=== PATIENT | female | born 1935 | race Asian ===

== ENCOUNTER 2018-09-07 13:40 | Emergency (ER) | payer OTHER, MEDICAID, SELFPAY ==
[2018-09-07] VITALS (10 sets, daily range): BP systolic 145–177; BP diastolic 57–115; PULSE 70–126; RESP 19–28; TEMP 35.8–36.6; O2SAT 91–98
--- NOTE | 2018-09-07 14:04 | DI.RAD.S_ITS ---
PROCEDURE: XR CHEST 1V INDICATIONS: chest pain TECHNIQUE: One view of the chest was acquired. COMPARISON: None. FINDINGS: Surgical changes and devices: None. Lungs and pleura: Lungs are abnormal with an interstitial prominence perhaps reflecting a prior smoking history and there is a asymmetric rounded mass lesion superimposed on the distal first right rib, measuring up to 1.9 cm. This same area on the left does not show increased radiodensity. The right hilum appears asymmetrically more dense than that on the left also. No pleural effusions or pneumothorax. Mediastinum: Mediastinal contours appear normal. Heart size is normal. Bones and chest wall: No suspicious bony lesions. Overlying soft tissues appear unremarkable. IMPRESSION: Possible apical mass lesion right upper lobe measuring up to 1.9 cm. Increased radiodensity over the right hilum is a potential manifestation of associated adenopathy. A chest CT scanning may be warranted versus obtaining two-view chest after symptoms have improved to determine whether this appearance persists or resolves. Dictated by: Ollie Snow M.D. on 09/07/2018 at 14:27 Approved by: Ollie Snow M.D. on 09/07/2018 at 14:29
[2018-09-07 14:32] LABS: Prothrombin Time 11.3 SECONDS (10.1-12.7)
[2018-09-07 14:33] LABS: Add Manual Diff / Slide Review NO; Basophils Absolute Auto 100 /uL (0-100); Basophils Percent Auto 0.8 % (0-2); Eosinophils Absolute Auto 200 /uL (0-450); Eosinophils Percent Auto 3.3 % (2-4); Hematocrit 39.9 % (36-46); Hemoglobin 13.6 g/dL (12.0-16.0); Lymphocytes Absolute Auto 1600 /uL (1100-4500); Lymphocytes Percent Auto 23.7 % (25-40); Mean Corpuscular HGB Conc 34.2 % (30-36); Mean Corpuscular Hemoglobin 31.2 PG (26-34); Mean Corpuscular Volume 91.4 fL (80-100); Monocytes Absolute Auto 600 /uL (0-900); Monocytes Percent Auto 8.5 % (3-14); Neutrophils Absolute Auto 4200 /uL (1500-7000); Neutrophils Percent Auto 63.7 % (50-75); Platelet Count 243 X10^3/uL (150-400); Red Blood Cell Count 4.36 X10^6/uL (4.0-5.2); Red Cell Distribution Width 14.2 % (11.6-14.8); White Blood Cell Count 6.7 X10^3/uL (4.5-11.0)
[2018-09-07 14:34] LABS: PTT Partial Thromboplastin Tim 29 SECONDS (26.4-36.2)
[2018-09-07 14:36] LABS: Alanine Aminotransferase 80 IU/L (9-52); Albumin 4.5 g/dL (3.5-5.0); Albumin Globulin Ratio 1.4 (1.0-2.8); Alkaline Phosphatase 79 U/L (38-126); Aspartate Aminotransferase 94 IU/L (14-36); Blood Urea Nitrogen 21 mg/dL (7-17); Calcium 10.6 mg/dL (8.4-10.2); Carbon Dioxide 26 mmol/L (22-32); Chloride 101 mmol/L (98-107); Creatine Kinase 74 U/L (30-135); Estimated Glomerular Filt Rate > 60.0 mL/min (>60); Globulin 3.2 g/dL (1.7-4.1); Glucose 97 mg/dL (80-110); Lipase 58 U/L (23-300); Sodium 138 mmol/L (137-145); Total Protein 7.7 g/dL (6.3-8.2)
[2018-09-07 14:38] LABS: HEMOLYSIS 71 (0-50)
[2018-09-07 14:39] LABS: Potassium 4.4 mmol/L (3.4-5.1)
[2018-09-07 14:48] LABS: Troponin I 0.031 ng/mL (0.01-0.034)
[2018-09-07 15:05] LABS: B Type Natriuretic Peptide 568 (<100)
--- NOTE | 2018-09-07 15:45 | DI.CT.S_ITS ---
PROCEDURE: CT ANGIO CHEST PE PROTOCOL INDICATIONS: SOB, chest pain, hypoxia, travel from [facility] TECHNIQUE: After the administration of intravenous contrast, 2 mm thick sections acquired from the pulmonary apices to the posterior costophrenic angles. 3-dimensional maximum intensity projection (MIP) coronal and sagittal reformats were then acquired through the thorax. For radiation dose reduction, the following was used: automated exposure control, adjustment of mA and/or kV according to patient size. COMPARISON: None. FINDINGS: Image quality: Excellent. Pulmonary arteries: Pulmonary arteries are normal in size, and demonstrate no intraluminal filling defects to suggest central pulmonary embolism. Lungs and pleura: Mild bilateral pleural effusions are present. There is adjacent atelectasis. No pneumothorax. Upper lobe predominant centrilobular emphysema. No acute consolidation. 4 mm nodule present within the right lung base on image 33 series 5. Scattered scarring/atelectasis. Mediastinum: Heart size is enlarged. Coronary artery calcifications are present. No pericardial effusion. No mediastinal or hilar adenopathy. 4.2 cm diameter aneurysmal dilatation of the ascending thoracic aorta. There scattered vascular calcifications. Esophagus is normal in caliber, without hiatal hernia. Bones and chest wall: No suspicious bony lesions. T12 compression fracture, technically age indeterminate. Thyroid gland contains a low attenuation 1 cm right nodule. No axillary or supraclavicular adenopathy. Abdomen: Visualized upper abdominal solid organs appear normal in the early arterial phase of enhancement. IMPRESSION: No evidence of pulmonary embolism. 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 Coronary artery disease. Scattered scarring/atelectasis. No acute consolidation Small bilateral pleural effusions with adjacent atelectasis. Nonspecific right thyroid nodule. This could be further assessed with dedicated ultrasound as clinically warranted. T12 compression fracture, age indeterminate. 4 mm nodule within the right lung base. A noncontrast chest CT in one year could be performed to help exclude malignant or metastatic etiologies. Dictated by: Sylvester Ambrose M.D. on 09/07/2018 at 16:16 Approved by: Sylvester Ambrose M.D. on 09/07/2018 at 16:23
[2018-09-07] MEDS: FUROSEMIDE 40 MG/4 ML VIAL IV (16:06)
[2018-09-07] MEDS: dilTIAZem 5 MG/ML SDV 10 MG IV (16:08)
--- NOTE | 2018-09-07 16:38 | ED.SOB ---
HPI - SOB/Dyspnea General Chief Complaint: Shortness of Breath/Dyspnea Stated Complaint: sob x2 weeks/both shins rash x1 year Time Seen by Provider: 09/07/18 14:20 Source: patient and family Mode of arrival: ambulatory Limitations: no limitations History of Present Illness 83-year-old female former smoker presents with her daughter and a chief complaint of shortness of breath for few weeks. She denies any chest pain and is not dizzy, nauseated or diaphoretic. She complains of worsening shortness of breath when lying flat, with exertion and complains of bilateral lower extremity edema. She denies palpitations and does not sense that her heart is racing. She was in the [facility] from April until June. Patient had been taking hydrochlorothiazide until about 1 year ago but stopped because her doctor told her she probably did not need it anymore MD Complaint: shortness of breath Onset (ago): week(s) Context: medication noncompliance and recent travel Severity: moderate Consistency/Duration: intermittent Relieving factors: oxygen and rest Associated symptoms: denies other symptoms Related Data Home oxygen amount: none Home Medications Medication Instructions Recorded Confirmed No Known Home Medications 09/07/18 09/07/18 Allergies Allergy/AdvReac Type Severity Reaction Status Date / Time No Known Drug Allergies Allergy Verified 09/07/18 14:23 Review of Systems Constitutional Denies chills, Denies fever(s), Denies lethargy and Denies weakness Eyes Denies change in vision, Denies eye discharge, Denies irritation and Denies loss of vision ENT Ears, Nose, Mouth, and Throat: Denies change in voice, Denies neck pain and Denies sore throat Cardiovascular Denies chest pain, Denies irregular heart rhythm, Denies lightheadedness, Denies palpitations, Reports dyspnea, Denies dyspnea on exertion and Denies orthopnea Respiratory Denies cough, Reports dyspnea, Denies dyspnea on exertion and Denies wheezing Gastrointestinal Gastrointestinal: Denies abdominal pain, Denies change in bowel habits, Denies diarrhea, Denies nausea and Denies vomiting Genitourinary Denies hematuria, Denies flank pain, Denies urinary incontinence and Denies urinary urgency Musculoskeletal Denies neck pain Integumentary/Breasts Denies pruritus, Denies erythema, Denies rash and Denies wounds Neurologic Denies confusion, Denies loss of vision and Denies weakness Psychiatric Denies anxiety, Denies confusion, Denies depression, Denies homicidal ideation and Denies suicidal ideation Endocrine Denies palpitations Hematologic/Lymphatic Denies easy bruising Allergic/Immunologic Denies wheezing PFSH Social History Smoking Status: Current every day smoker Social History Smoking Status: Current every day smoker Exam Narrative Exam Narrative: GENERAL: Pleasant 83-year-old female resting comfortably though obviously having some shortness of breath HEAD: Atraumatic. Normocephalic. No temporal or scalp tenderness. EYES: Pupils equal round and reactive. Extraocular motions intact. No scleral icterus. No injection or drainage. ENT: Nose without bleeding, purulent drainage or septal hematoma. Throat without erythema, tonsillar hypertrophy or exudate. Uvula midline. Airway patent. NECK: Trachea midline. No JVD or lymphadenopathy. Supple, nontender, no meningeal signs. CARDIOVASCULAR: Tachycardic and irregular rhythm without murmurs, gallops, or rubs. RESPIRATORY: Crackles in bilateral bases. No wheezes, rales, or rhonchi. GASTROINTESTINAL: Abdomen soft, non-tender, nondistended. No hepato-splenomegaly, or palpable masses. No guarding. EXTREMITIES: 2+ pitting edema in bilateral lower extremities BACK: Nontender without deformity or crepitance. No flank tenderness. NEURO: AOx3. SKIN: No rash or erythema. Initial Vital Signs Initial Vital Signs: Vital Signs Temperature 97.8 F 09/07/18 13:50 Pulse Rate 126 H 09/07/18 13:50 Respiratory Rate 22 09/07/18 13:50 Blood Pressure 173/105 H 09/07/18 13:50 Pulse Oximetry 94 09/07/18 13:50 Course Orders Ordered: ED Orders 09/07/18 14:03 EKG-12 Lead Stat 09/07/18 14:04 XR chest 1V Stat 09/07/18 14:15 BNP [B Type Natriuretic Peptide] Stat Complete Blood Count AUTO DIFF Stat Comprehensive Metabolic Panel Stat Lipase Stat Partial Thromboplastin Time Stat Prothrombin Time INR Stat Troponin & CK Cardiac Panel Stat 09/07/18 15:45 CT angio chest PE protocol Stat Discontinued Medications Diltiazem HCl (Cardizem) 10 mg IV NOW ONE Stop: 09/07/18 15:47 Last Admin: 09/07/18 16:08 Dose: 10 mg Diltiazem HCl (Cardizem Cd) 120 mg PO NOW ONE Stop: 09/07/18 17:11 Last Admin: 09/07/18 17:30 Dose: 120 mg Furosemide (Lasix) 40 mg IV NOW ONE Stop: 09/07/18 15:46 Last Admin: 09/07/18 16:06 Dose: 40 mg Rivaroxaban (Xarelto) 15 mg PO NOW ONE Stop: 09/07/18 17:11 Last Admin: 09/07/18 17:31 Dose: Not Given Rivaroxaban (Xarelto) 20 mg PO NOW ONE Stop: 09/07/18 17:23 Last Admin: 09/07/18 17:30 Dose: 20 mg Reevaluation(s) Reevaluation #1: Patient making dilute urine after 1 dose of Lasix. She is ambulating through the department without difficulty and becoming hypoxic Consultations Consultation #1: Called to PCP to discuss the patient's visit. At no point did she require oxygen, 1 dose of Cardizem has kept her heart rate below 100 for a few hours. We have administered an oral dose of Cardizem and 1st dose of Xarelto and the patient will be seen by PCP tomorrow at 10:30 a.m. Vital Signs - 8 hr 09/07/18 13:50 09/07/18 14:00 09/07/18 14:18 Temperature 97.8 F Pulse Rate 126 H 95 H 98 H Respiratory Rate 22 19 28 H Blood Pressure 173/105 H Blood Pressure [Left Arm] 173/105 H 170/115 H Pulse Oximetry 94 95 94 09/07/18 15:00 09/07/18 15:30 09/07/18 16:08 Temperature Pulse Rate 70 93 H 112 H Respiratory Rate 27 H 21 Blood Pressure 155/92 H Blood Pressure [Left Arm] 177/111 H 155/92 H Pulse Oximetry 95 95 09/07/18 16:30 09/07/18 17:00 09/07/18 17:14 Temperature Pulse Rate 90 88 88 Respiratory Rate 24 24 26 H Blood Pressure Blood Pressure [Left Arm] 145/57 H 168/95 H Pulse Oximetry 94 95 91 MDM - SOB/Dyspnea Lab Data Result diagrams: 09/07/18 14:15 09/07/18 14:15 Lab Results 09/07/18 09/07/1809/07/19 Range/Units 13:49 14:15 14:15 WBC 6.7 (4.5-11.0) X10^3/uL RBC 4.36 (4.0-5.2) X10^6/uL Hgb 13.6 (12.0-16.0) g/dL Hct 39.9 (36-46) % MCV 91.4 (80-100) fL MCH 31.2 (26-34) PG MCHC 34.2 (30-36) % RDW 14.2 (11.6-14.8) % Plt Count 243 (150-400) X10^3/uL Neut % (Auto) 63.7 (50-75) % Lymph % (Auto) 23.7 L (25-40) % Polk % (Auto) 8.5 (3-14) % Eos % (Auto) 3.3 (2-4) % Baso % (Auto) 0.8 (0-2) % Neut # (Auto) 4200 (7693-9939) /uL Lymph # (Auto) 1600 (0967-9289) /uL Polk # (Auto) 600 (0-900) /uL Eos # (Auto) 200 (0-450) /uL Baso # (Auto) 100 (0-100) /uL PT 11.3 (10.1-12.7) SECONDS INR 1.0 (0.9-1.3) APTT 29 (26.4-36.2) SECONDS VBG pH Cancelled VBG pCO2 Cancelled VBG pO2 Cancelled VBG HCO3 Cancelled VBG Total CO2 Cancelled VBG O2 Saturation Cancelled VBG Base Excess Cancelled Sodium (137-145) mmol/L Potassium (3.4-5.1) mmol/L Chloride (98-107) mmol/L Carbon Dioxide (22-32) mmol/L BUN (7-17) mg/dL Creatinine (0.52-1.04) mg/dL Estimated GFR (>60) mL/min BUN/Creatinine Ratio (6-22) Glucose (80-110) mg/dL Calcium (8.4-10.2) mg/dL Total Bilirubin (0.2-1.3) mg/dL AST (14-36) IU/L ALT (9-52) IU/L Alkaline Phosphatase (38-126) U/L Total Creatine Kinase (30-135) U/L CK-MB (CK-2) CK-MB (CK-2) Rel Index Troponin I (0.01-0.034) ng/mL B-Natriuretic Peptide 568 H (<100) Total Protein (6.3-8.2) g/dL Albumin (3.5-5.0) g/dL Globulin (1.7-4.1) g/dL Albumin/Globulin Ratio (1.0-2.8) Lipase (23-300) U/L 09/07/18 Range/Units 14:15 WBC (4.5-11.0) X10^3/uL RBC (4.0-5.2) X10^6/uL Hgb (12.0-16.0) g/dL Hct (36-46) % MCV (80-100) fL MCH (26-34) PG MCHC (30-36) % RDW (11.6-14.8) % Plt Count (150-400) X10^3/uL Neut % (Auto) (50-75) % Lymph % (Auto) (25-40) % Polk % (Auto) (3-14) % Eos % (Auto) (2-4) % Baso % (Auto) (0-2) % Neut # (Auto) (1153-0743) /uL Lymph # (Auto) (4585-3272) /uL Polk # (Auto) (0-900) /uL Eos # (Auto) (0-450) /uL Baso # (Auto) (0-100) /uL PT (10.1-12.7) SECONDS INR (0.9-1.3) APTT (26.4-36.2) SECONDS VBG pH VBG pCO2 VBG pO2 VBG HCO3 VBG Total CO2 VBG O2 Saturation VBG Base Excess Sodium 138 (137-145) mmol/L Potassium 4.4 (3.4-5.1) mmol/L Chloride 101 (98-107) mmol/L Carbon Dioxide 26 (22-32) mmol/L BUN 21 H (7-17) mg/dL Creatinine 0.60 (0.52-1.04) mg/dL Estimated GFR > 60.0 (>60) mL/min BUN/Creatinine Ratio 35.0 H (6-22) Glucose 97 (80-110) mg/dL Calcium 10.6 H (8.4-10.2) mg/dL Total Bilirubin 1.0 (0.2-1.3) mg/dL AST 94 H (14-36) IU/L ALT 80 H (9-52) IU/L Alkaline Phosphatase 79 (38-126) U/L Total Creatine Kinase 74 (30-135) U/L CK-MB (CK-2) TNP CK-MB (CK-2) Rel Index TNP Troponin I 0.031 (0.01-0.034) ng/mL B-Natriuretic Peptide (<100) Total Protein 7.7 (6.3-8.2) g/dL Albumin 4.5 (3.5-5.0) g/dL Globulin 3.2 (1.7-4.1) g/dL Albumin/Globulin Ratio 1.4 (1.0-2.8) Lipase 58 (23-300) U/L Imaging Data CT scan - chest: Radiologist's impression: [place] [address] CT Scan Report Signed Patient: Ivy Webber AMR#: [id number] : 7Acct:[id number] Age/Sex: 83 / FDate of Service: 09/07/18 Loc: Accession Number: [id number] Procedure: CT angio chest PE protocol Ordering Provider: Juan Price D.O. PROCEDURE: CT ANGIO CHEST PE PROTOCOL INDICATIONS: SOB, chest pain, hypoxia, travel from [facility] TECHNIQUE: After the administration of intravenous contrast, 2 mm thick sections acquired from the pulmonary apices to the posterior costophrenic angles. 3-dimensional maximum intensity projection (MIP) coronal and sagittal reformats were then acquired through the thorax. For radiation dose reduction, the following was used: automated exposure control, adjustment of mA and/or kV according to patient size. COMPARISON: None. FINDINGS: Image quality: Excellent. Pulmonary arteries: Pulmonary arteries are normal in size, and demonstrate no intraluminal filling defects to suggest central pulmonary embolism. Lungs and pleura: Mild bilateral pleural effusions are present. There is adjacent atelectasis. No pneumothorax. Upper lobe predominant centrilobular emphysema. No acute consolidation. 4 mm nodule present within the right lung base on image 33 series 5. Scattered scarring/atelectasis. Mediastinum: Heart size is enlarged. Coronary artery calcifications are present. No pericardial effusion. No mediastinal or hilar adenopathy. 4.2 cm diameter aneurysmal dilatation of the ascending thoracic aorta. There scattered vascular calcifications. Esophagus is normal in caliber, without hiatal hernia. Bones and chest wall: No suspicious bony lesions. T12 compression fracture, technically age indeterminate. Thyroid gland contains a low attenuation 1 cm right nodule. No axillary or supraclavicular adenopathy. Abdomen: Visualized upper abdominal solid organs appear normal in the early arterial phase of enhancement. IMPRESSION: No evidence of pulmonary embolism. 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 Coronary artery disease. Scattered scarring/atelectasis. No acute consolidation Small bilateral pleural effusions with adjacent atelectasis. Nonspecific right thyroid nodule. This could be further assessed with dedicated ultrasound as clinically warranted. T12 compression fracture, age indeterminate. 4 mm nodule within the right lung base. A noncontrast chest CT in one year could be performed to help exclude malignant or metastatic etiologies. Dictated by: Sylvester Ambrose M.D. on 09/07/2018 at 16:16 Approved by: Sylvester Ambrose M.D. on 09/07/2018 at 16:23 Chest x-ray: Radiologist's impression: [place] [address] XRay Report Signed Patient: Ivy Webber AMR#: [id number] : 7Acct:[id number] Age/Sex: 83 / FDate of Service: 09/07/18 Loc: ED Accession Number: [id number] Procedure: XR chest 1V Ordering Provider: Juan Price D.O. PROCEDURE: XR CHEST 1V INDICATIONS: chest pain TECHNIQUE: One view of the chest was acquired. COMPARISON: None. FINDINGS: Surgical changes and devices: None. Lungs and pleura: Lungs are abnormal with an interstitial prominence perhaps reflecting a prior smoking history and there is a asymmetric rounded mass lesion superimposed on the distal first right rib, measuring up to 1.9 cm. This same area on the left does not show increased radiodensity. The right hilum appears asymmetrically more dense than that on the left also. No pleural effusions or pneumothorax. Mediastinum: Mediastinal contours appear normal. Heart size is normal. Bones and chest wall: No suspicious bony lesions. Overlying soft tissues appear unremarkable. IMPRESSION: Possible apical mass lesion right upper lobe measuring up to 1.9 cm. Increased radiodensity over the right hilum is a potential manifestation of associated adenopathy. A chest CT scanning may be warranted versus obtaining two-view chest after symptoms have improved to determine whether this appearance persists or resolves. Dictated by: Ollie Snow M.D. on 09/07/2018 at 14:27 Approved by: Ollie Snow M.D. on 09/07/2018 at 14:29 ECG Data Attestation: I personally reviewed and interpreted this ECG as follows: Prior ECG tracings: not available for review Interpretation: Atrial fibrillation with a rate between 96 and 110, no other ectopy, no signs ischemia such as ST segmental elevation or depression Discharge Plan Departure Patient Disposition: Home Clinical Impression: Congestive heart failure Qualifiers: Heart failure type: unspecified Heart failure chronicity: unspecified Qualified Code(s): I50.9 - Heart failure, unspecified Atrial fibrillation Qualifiers: Atrial fibrillation type: unspecified Qualified Code(s): I48.91 - Unspecified atrial fibrillation Instructions: DI for Atrial Fibrillation Activity Restrictions/Additional Instructions: *You have been diagnosed with [newly diagnosed atrial fibrillation and the fluid overload] *What to do: *Take medications as directed: Today were given her 1st dose of a blood thinner (Xarelto) and Cardizem. Cardizem will help with both your heart rate and her blood pressure *Follow up with your primary care provider tomorrow at 10:30 a.m. *Return to ER if you should have any new, worsening or concerning symptoms Prescriptions: No Action No Known Home Medications RF: 0
--- NOTE | 2018-09-07 16:42 | ED_ITS ---
HPI - SOB/Dyspnea General Chief Complaint: Shortness of Breath/Dyspnea Stated Complaint: sob x2 weeks/both shins rash x1 year Time Seen by Provider: 09/07/18 14:20 Source: patient and family Mode of arrival: ambulatory Limitations: no limitations History of Present Illness 83-year-old female former smoker presents with her daughter and a chief complaint of shortness of breath for few weeks. She denies any chest pain and is not dizzy, nauseated or diaphoretic. She complains of worsening shortness of breath when lying flat, with exertion and complains of bilateral lower extremity edema. She denies palpitations and does not sense that her heart is racing. She was in the [facility] from April until June. Patient had been taking hydrochlorothiazide until about 1 year ago but stopped because her doctor told her she probably did not need it anymore MD Complaint: shortness of breath Onset (ago): week(s) Context: medication noncompliance and recent travel Severity: moderate Consistency/Duration: intermittent Relieving factors: oxygen and rest Associated symptoms: denies other symptoms Related Data Home oxygen amount: none Home Medications Medication Instructions Recorded Confirmed No Known Home Medications 09/07/18 09/07/18 Allergies Allergy/AdvReac Type Severity Reaction Status Date / Time No Known Drug Allergies Allergy Verified 09/07/18 14:23 Review of Systems Constitutional Denies chills, Denies fever(s), Denies lethargy and Denies weakness Eyes Denies change in vision, Denies eye discharge, Denies irritation and Denies loss of vision ENT Ears, Nose, Mouth, and Throat: Denies change in voice, Denies neck pain and Denies sore throat Cardiovascular Denies chest pain, Denies irregular heart rhythm, Denies lightheadedness, Denies palpitations, Reports dyspnea, Denies dyspnea on exertion and Denies orthopnea Respiratory Denies cough, Reports dyspnea, Denies dyspnea on exertion and Denies wheezing Gastrointestinal Gastrointestinal: Denies abdominal pain, Denies change in bowel habits, Denies diarrhea, Denies nausea and Denies vomiting Genitourinary Denies hematuria, Denies flank pain, Denies urinary incontinence and Denies urinary urgency Musculoskeletal Denies neck pain Integumentary/Breasts Denies pruritus, Denies erythema, Denies rash and Denies wounds Neurologic Denies confusion, Denies loss of vision and Denies weakness Psychiatric Denies anxiety, Denies confusion, Denies depression, Denies homicidal ideation and Denies suicidal ideation Endocrine Denies palpitations Hematologic/Lymphatic Denies easy bruising Allergic/Immunologic Denies wheezing PFSH Social History Smoking Status: Current every day smoker Social History Smoking Status: Current every day smoker Exam Narrative Exam Narrative: GENERAL: Pleasant 83-year-old female resting comfortably though obviously having some shortness of breath HEAD: Atraumatic. Normocephalic. No temporal or scalp tenderness. EYES: Pupils equal round and reactive. Extraocular motions intact. No scleral icterus. No injection or drainage. ENT: Nose without bleeding, purulent drainage or septal hematoma. Throat without erythema, tonsillar hypertrophy or exudate. Uvula midline. Airway patent. NECK: Trachea midline. No JVD or lymphadenopathy. Supple, nontender, no meningeal signs. CARDIOVASCULAR: Tachycardic and irregular rhythm without murmurs, gallops, or rubs. RESPIRATORY: Crackles in bilateral bases. No wheezes, rales, or rhonchi. GASTROINTESTINAL: Abdomen soft, non-tender, nondistended. No hepato- splenomegaly, or palpable masses. No guarding. EXTREMITIES: 2+ pitting edema in bilateral lower extremities BACK: Nontender without deformity or crepitance. No flank tenderness. NEURO: AOx3. SKIN: No rash or erythema. Initial Vital Signs Initial Vital Signs: Vital Signs Temperature 97.8 F 09/07/18 13:50 Pulse Rate 126 H 09/07/18 13:50 Respiratory Rate 22 09/07/18 13:50 Blood Pressure 173/105 H 09/07/18 13:50 Pulse Oximetry 94 09/07/18 13:50 Course Orders Ordered: ED Orders 09/07/18 14:03 EKG-12 Lead Stat 09/07/18 14:04 XR chest 1V Stat 09/07/18 14:15 BNP [B Type Natriuretic Peptide] Stat Complete Blood Count AUTO DIFF Stat Comprehensive Metabolic Panel Stat Lipase Stat Partial Thromboplastin Time Stat Prothrombin Time INR Stat Troponin & CK Cardiac Panel Stat 09/07/18 15:45 CT angio chest PE protocol Stat Discontinued Medications Diltiazem HCl (Cardizem) 10 mg IV NOW ONE Stop: 09/07/18 15:47 Last Admin: 09/07/18 16:08 Dose: 10 mg Diltiazem HCl (Cardizem Cd) 120 mg PO NOW ONE Stop: 09/07/18 17:11 Last Admin: 09/07/18 17:30 Dose: 120 mg Furosemide (Lasix) 40 mg IV NOW ONE Stop: 09/07/18 15:46 Last Admin: 09/07/18 16:06 Dose: 40 mg Rivaroxaban (Xarelto) 15 mg PO NOW ONE Stop: 09/07/18 17:11 Last Admin: 09/07/18 17:31 Dose: Not Given Rivaroxaban (Xarelto) 20 mg PO NOW ONE Stop: 09/07/18 17:23 Last Admin: 09/07/18 17:30 Dose: 20 mg Reevaluation(s) Reevaluation #1: Patient making dilute urine after 1 dose of Lasix. She is ambulating through the department without difficulty and becoming hypoxic Consultations Consultation #1: Called to PCP to discuss the patient's visit. At no point did she require oxygen, 1 dose of Cardizem has kept her heart rate below 100 for a few hours. We have administered an oral dose of Cardizem and 1st dose of Xarelto and the patient will be seen by PCP tomorrow at 10:30 a.m. Vital Signs - 8 hr 09/07/18 13:50 09/07/18 14:00 09/07/18 14:18 Temperature 97.8 F Pulse Rate 126 H 95 H 98 H Respiratory Rate 22 19 28 H Blood Pressure 173/105 H Blood Pressure [Left Arm] 173/105 H 170/115 H Pulse Oximetry 94 95 94 09/07/18 15:00 09/07/18 15:30 09/07/18 16:08 Temperature Pulse Rate 70 93 H 112 H Respiratory Rate 27 H 21 Blood Pressure 155/92 H Blood Pressure [Left Arm] 177/111 H 155/92 H Pulse Oximetry 95 95 09/07/18 16:30 09/07/18 17:00 09/07/18 17:14 Temperature Pulse Rate 90 88 88 Respiratory Rate 24 24 26 H Blood Pressure Blood Pressure [Left Arm] 145/57 H 168/95 H Pulse Oximetry 94 95 91 MDM - SOB/Dyspnea Lab Data Result diagrams: 09/07/18 14:15 09/07/18 14:15 Lab Results 09/07/18 09/07/1809/07/19 Range/Units 13:49 14:15 14:15 WBC 6.7 (4.5-11.0) X10^3/uL RBC 4.36 (4.0-5.2) X10^6/uL Hgb 13.6 (12.0-16.0) g/dL Hct 39.9 (36-46) % MCV 91.4 (80-100) fL MCH 31.2 (26-34) PG MCHC 34.2 (30-36) % RDW 14.2 (11.6-14.8) % Plt Count 243 (150-400) X10^3/uL Neut % (Auto) 63.7 (50-75) % Lymph % (Auto) 23.7 L (25-40) % Kidder % (Auto) 8.5 (3-14) % Eos % (Auto) 3.3 (2-4) % Baso % (Auto) 0.8 (0-2) % Neut # (Auto) 4200 (5778-7590) /uL Lymph # (Auto) 1600 (2454-7185) /uL Kidder # (Auto) 600 (0-900) /uL Eos # (Auto) 200 (0-450) /uL Baso # (Auto) 100 (0-100) /uL PT 11.3 (10.1-12.7) SECONDS INR 1.0 (0.9-1.3) APTT 29 (26.4-36.2) SECONDS VBG pH Cancelled VBG pCO2 Cancelled VBG pO2 Cancelled VBG HCO3 Cancelled VBG Total CO2 Cancelled VBG O2 Saturation Cancelled VBG Base Excess Cancelled Sodium (137-145) mmol/L Potassium (3.4-5.1) mmol/L Chloride (98-107) mmol/L Carbon Dioxide (22-32) mmol/L BUN (7-17) mg/dL Creatinine (0.52-1.04) mg/dL Estimated GFR (>60) mL/min BUN/Creatinine Ratio (6-22) Glucose (80-110) mg/dL Calcium (8.4-10.2) mg/dL Total Bilirubin (0.2-1.3) mg/dL AST (14-36) IU/L ALT (9-52) IU/L Alkaline Phosphatase (38-126) U/L Total Creatine Kinase (30-135) U/L CK-MB (CK-2) CK-MB (CK-2) Rel Index Troponin I (0.01-0.034) ng/mL B-Natriuretic Peptide 568 H (<100) Total Protein (6.3-8.2) g/dL Albumin (3.5-5.0) g/dL Globulin (1.7-4.1) g/dL Albumin/Globulin Ratio (1.0-2.8) Lipase (23-300) U/L 09/07/18 Range/Units 14:15 WBC (4.5-11.0) X10^3/uL RBC (4.0-5.2) X10^6/uL Hgb (12.0-16.0) g/dL Hct (36-46) % MCV (80-100) fL MCH (26-34) PG MCHC (30-36) % RDW (11.6-14.8) % Plt Count (150-400) X10^3/uL Neut % (Auto) (50-75) % Lymph % (Auto) (25-40) % Kidder % (Auto) (3-14) % Eos % (Auto) (2-4) % Baso % (Auto) (0-2) % Neut # (Auto) (7163-5812) /uL Lymph # (Auto) (0598-6596) /uL Kidder # (Auto) (0-900) /uL Eos # (Auto) (0-450) /uL Baso # (Auto) (0-100) /uL PT (10.1-12.7) SECONDS INR (0.9-1.3) APTT (26.4-36.2) SECONDS VBG pH VBG pCO2 VBG pO2 VBG HCO3 VBG Total CO2 VBG O2 Saturation VBG Base Excess Sodium 138 (137-145) mmol/L Potassium 4.4 (3.4-5.1) mmol/L Chloride 101 (98-107) mmol/L Carbon Dioxide 26 (22-32) mmol/L BUN 21 H (7-17) mg/dL Creatinine 0.60 (0.52-1.04) mg/dL Estimated GFR > 60.0 (>60) mL/min BUN/Creatinine Ratio 35.0 H (6-22) Glucose 97 (80-110) mg/dL Calcium 10.6 H (8.4-10.2) mg/dL Total Bilirubin 1.0 (0.2-1.3) mg/dL AST 94 H (14-36) IU/L ALT 80 H (9-52) IU/L Alkaline Phosphatase 79 (38-126) U/L Total Creatine Kinase 74 (30-135) U/L CK-MB (CK-2) TNP CK-MB (CK-2) Rel Index TNP Troponin I 0.031 (0.01-0.034) ng/mL B-Natriuretic Peptide (<100) Total Protein 7.7 (6.3-8.2) g/dL Albumin 4.5 (3.5-5.0) g/dL Globulin 3.2 (1.7-4.1) g/dL Albumin/Globulin Ratio 1.4 (1.0-2.8) Lipase 58 (23-300) U/L Imaging Data CT scan - chest: Radiologist's impression: [place] [address] CT Scan Report Signed Patient: Ivy Webber AMR#: [id number] : 7Acct:[id number] Age/Sex: 83 / FDate of Service: 09/07/18 Loc: Accession Number: [id number] Procedure: CT angio chest PE protocol Ordering Provider: Juan Price D.O. PROCEDURE: CT ANGIO CHEST PE PROTOCOL INDICATIONS: SOB, chest pain, hypoxia, travel from [facility] TECHNIQUE: After the administration of intravenous contrast, 2 mm thick sections acquired from the pulmonary apices to the posterior costophrenic angles. 3-dimensional maximum intensity projection (MIP) coronal and sagittal reformats were then acquired through the thorax. For radiation dose reduction, the following was used: automated exposure control, adjustment of mA and/or kV according to patient size. COMPARISON: None. FINDINGS: Image quality: Excellent. Pulmonary arteries: Pulmonary arteries are normal in size, and demonstrate no intraluminal filling defects to suggest central pulmonary embolism. Lungs and pleura: Mild bilateral pleural effusions are present. There is adjacent atelectasis. No pneumothorax. Upper lobe predominant centrilobular emphysema. No acute consolidation. 4 mm nodule present within the right lung base on image 33 series 5. Scattered scarring/atelectasis. Mediastinum: Heart size is enlarged. Coronary artery calcifications are present. No pericardial effusion. No mediastinal or hilar adenopathy. 4.2 cm diameter aneurysmal dilatation of the ascending thoracic aorta. There scattered vascular calcifications. Esophagus is normal in caliber, without hiatal hernia. Bones and chest wall: No suspicious bony lesions. T12 compression fracture, technically age indeterminate. Thyroid gland contains a low attenuation 1 cm right nodule. No axillary or supraclavicular adenopathy. Abdomen: Visualized upper abdominal solid organs appear normal in the early arterial phase of enhancement. IMPRESSION: No evidence of pulmonary embolism. 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 Coronary artery disease. Scattered scarring/atelectasis. No acute consolidation Small bilateral pleural effusions with adjacent atelectasis. Nonspecific right thyroid nodule. This could be further assessed with dedicated ultrasound as clinically warranted. T12 compression fracture, age indeterminate. 4 mm nodule within the right lung base. A noncontrast chest CT in one year could be performed to help exclude malignant or metastatic etiologies. Dictated by: Sylvester Ambrose M.D. on 09/07/2018 at 16:16 Approved by: Sylvester Ambrose M.D. on 09/07/2018 at 16:23 Chest x-ray: Radiologist's impression: [place] [address] XRay Report Signed Patient: Ivy Webber AMR#: [id number] : 7Acct:[id number] Age/Sex: 83 / FDate of Service: 09/07/18 Loc: ED Accession Number: [id number] Procedure: XR chest 1V Ordering Provider: Juan Price D.O. PROCEDURE: XR CHEST 1V INDICATIONS: chest pain TECHNIQUE: One view of the chest was acquired. COMPARISON: None. FINDINGS: Surgical changes and devices: None. Lungs and pleura: Lungs are abnormal with an interstitial prominence perhaps reflecting a prior smoking history and there is a asymmetric rounded mass lesion superimposed on the distal first right rib, measuring up to 1.9 cm. This same area on the left does not show increased radiodensity. The right hilum appears asymmetrically more dense than that on the left also. No pleural effusions or pneumothorax. Mediastinum: Mediastinal contours appear normal. Heart size is normal. Bones and chest wall: No suspicious bony lesions. Overlying soft tissues appear unremarkable. IMPRESSION: Possible apical mass lesion right upper lobe measuring up to 1.9 cm. Increased radiodensity over the right hilum is a potential manifestation of associated adenopathy. A chest CT scanning may be warranted versus obtaining two-view chest after symptoms have improved to determine whether this appearance persists or resolves. Dictated by: Ollie Snow M.D. on 09/07/2018 at 14:27 Approved by: Ollie Snow M.D. on 09/07/2018 at 14:29 ECG Data Attestation: I personally reviewed and interpreted this ECG as follows: Prior ECG tracings: not available for review Interpretation: Atrial fibrillation with a rate between 96 and 110, no other ect opy, no signs ischemia such as ST segmental elevation or depression Discharge Plan Departure Patient Disposition: Home Clinical Impression: Congestive heart failure Qualifiers: Heart failure type: unspecified Heart failure chronicity: unspecified Qualified Code(s): I50.9 - Heart failure, unspecified Atrial fibrillation Qualifiers: Atrial fibrillation type: unspecified Qualified Code(s): I48.91 - Unspecified atrial fibrillation Instructions: DI for Atrial Fibrillation Activity Restrictions/Additional Instructions: *You have been diagnosed with [newly diagnosed atrial fibrillation and the fluid overload] *What to do: *Take medications as directed: Today were given her 1st dose of a blood thinner (Xarelto) and Cardizem. Cardizem will help with both your heart rate and her blood pressure *Follow up with your primary care provider tomorrow at 10:30 a.m. *Return to ER if you should have any new, worsening or concerning symptoms Prescriptions: No Action No Known Home Medications RF: 0
[2018-09-07] MEDS: dilTIAZem CD 120 MG CAP PO (17:30)
[2018-09-07] MEDS: RIVAROXABAN 10 MG TABLET 20 MG PO (17:30)
== END 2018-09-07 17:53 | disposition home or self-care (01) ==
PROVIDERS: Emergency Provider Emergency Medicine
DX: I50.9 Heart failure, unspecified (principal); I48.91 Unspecified atrial fibrillation
CPT/HCPCS: 36591; 71045; 71275; 80053; 82550; 83690; 83880; 84484; 85025; 85610; 85730; 93005; 93010; 96374; 96375; 99285; J1940; Q9967

== ENCOUNTER → 2018-09-11 08:16 | Outpatient (CLI) | payer OTHER, MEDICAID, SELFPAY ==
--- NOTE | 2018-09-11 | DI.US.S_ITS ---
PROCEDURE: US CHEST COMPARISON: None. INDICATIONS: LOCALIZED SWEELING/MASS/LUMP ON UPPER BACK FINDINGS: 10.1 x 1.8 x 1.6 cm upper back slightly right of the midline subcutaneous mass present corresponding to the palpable abnormality. Minimal vascularity present. IMPRESSION: Soft tissue mass which may represent a lipoma; however differential would include other benign and malignant etiologies. If indicated, soft tissue MRI could be performed for further characterization. Dictated by: Wes BERNARD Interpreted: Zander Garcia MD on 09/11/2018 at 10:02 Approved by: Zander Garcia M.D. on 09/11/2018 at 12:05
== END ==
PROVIDERS: PCP Family Medicine; Visit Provider Family Medicine
DX: R22.2 Localized swelling, mass and lump, trunk (principal)
CPT/HCPCS: 76604

== ENCOUNTER → 2018-09-18 07:49 | Outpatient (CLI) | payer OTHER, MEDICAID, SELFPAY ==
--- NOTE | 2018-09-18 | DI.ECHO.S_ITS ---
[facility] +---------+ : : [address] : : : : [id number] : : : : Phone: [phone]+ Echocardiogram Report + + :Name: MELISSA YAÑEZ Study Date: 09/18/2018 Height: 59 in : :[facility] Weight: 108 lb : : Gender: Female BSA: 1.4 m2 : :: 1935 Age: 83 yrs BP: 138/82 mmHg: :Reason For Study: Congestive Heart Failure : : Performed By: Julianne Ramirez : :Referring: CHON VENEGAS : + + Interpretation Summary 1) Normal left ventricular thickness, size, wall motion, and systolic function (EF 60-65%). 2) Normal right ventricular size and function. 3) The left atrium is severely dilated. 4) Diastolic parameters suggest a pseudonormalization pattern, consistent with probable elevated filling pressures. 5) There is moderate to severe mitral regurgitation. Mitrl valve is mild calcific and thickened with no prolapse or flail leaflet or KIRSTEN. 6) The right ventricular systolic pressure is estimated to be at least 39 mmHg based on an estimated right atrial pressure of 3 mm Hg. 7) Mild hypertension present during the study (BP 138/82mmHg). 8) No prior Echo available for comparison. Procedure: A two-dimensional transthoracic echocardiogram with color flow and Doppler was performed. The study quality was technically good. There is no prior echocardiogram noted for this patient. The heart rate ranged between 64- 74 bpm during the study. Left Ventricle: The left ventricle is normal in size, wall thickness, and systolic function without any focal wall motion abnormalities. The ejection fraction is estimated to be 60-65%. Diastolic parameters suggest a pseudonormalization pattern, consistent with probable elevated filling pressures. Right Ventricle: The right ventricle grossly appears normal in size with probable normal systolic function. Atria: The left atrium is severely dilated. The right atrium is mildly dilated. The interatrial septum is intact with no evidence for an atrial septal defect. Mitral Valve: The mitral valve leaflets appear mildly thickened, but open well. There is mild mitral annular calcification. There is moderate to severe mitral regurgitation. Aortic Valve: The aortic valve is trileaflet. The aortic valve opens well. There is no aortic valve stenosis. There is trace aortic regurgitation. Tricuspid Valve: The tricuspid valve leaflets are thickened and/or calcified, but open well. There is mild tricuspid regurgitation. The right ventricular systolic pressure is estimated to be at least 39 mmHg based on an estimated right atrial pressure of 3 mm Hg. Pulmonic Valve: The pulmonic valve is not well seen, but is grossly normal. There is mild pulmonic regurgitation. Great Vessels: The aortic root is normal size. The ascending aorta is at the upper limits of normal in size. The IVC is of normal diameter and collapses greater than 50% with a sniff. This suggests a low right atrial pressure of 3 mm Hg. Pericardium/ Pleura There is no pericardial effusion. There is no pleural effusion. MMode/2D Measurements & Calculations LVIDd: 4.1 cm Ao root diam: 3.5 cm LVIDs: 2.1 cm Aortic Jxn: 2.7 cm FS: 48.4 % asc Aorta Diam: 4.1 cm EPSS: 0.46 cm Ao Arch Diam (Prox Trans): 1.9 cm IVSd: 1.1 cm LVPWd: 0.83 cm LV pinedo. diameter/BSA (cm/m^2): 2.9 LV sys. diameter/BSA (cm/m^2): 1.5 LA dimension: 3.7 cm RA long axis: 5.4 cm LA A2 area: 28.0 cm2 RA area: 17.8 cm2 LA A4 area: 23.8 cm2 RA vol: 50.0 ml LA length (vol): 6.1 cm RA : 35.2 ml/m2 LA vol: 92.7 ml IVC diam: 1.9 cm LA vol index: 65.3 ml/m2 RVDd major: 4.7 cm RVD1 (basal): 2.6 cm RVD2 (mid): 2.0 cm Doppler Measurements & Calculations Ao V2 max: 131.3 cm/sec MV E max jerod: 136.7 cm/sec Ao V2 mean: 81.7 cm/sec MV A max jerod: 32.9 cm/sec Ao max P.9 mmHg MV E/A: 4.2 Ao mean P.2 mmHg Med Peak E' Jerod: 5.6 cm/sec Ao V2 VTI: 27.6 cm E/E' med: 24.5 Lat Peak E' Jerod: 6.7 cm/sec E/E' lat: 20.3 E/e' average: 22.4 MV dec time: 0.23 sec MV P1/2t: 69.9 msec MR ERO: 0.30 cm2 TR max jerod: 298.5 cm/sec MV P1/2t max jerod: 137.7 cm/sec TR max P.6 mmHg MVA(P1/2t): 3.1 cm2 PA V2 max: 63.6 cm/sec PA V2 mean: 42.9 cm/sec PA mean P.87 mmHg PA Accel Time: 0.13 sec MR flow rate: 178.2 cm3/sec MR PISA radius: 0.85 cm Reading Physician:12:29 PM
[2018-09-18 08:54] LABS: Add Manual Diff / Slide Review NO; Basophils Absolute Auto 0 /uL (0-100); Basophils Percent Auto 0.7 % (0-2); Eosinophils Absolute Auto 300 /uL (0-450); Hematocrit 42.5 % (36-46); Hemoglobin 14.2 g/dL (12.0-16.0); Lymphocytes Absolute Auto 1500 /uL (1100-4500); Lymphocytes Percent Auto 25.5 % (25-40); Mean Corpuscular HGB Conc 33.5 % (30-36); Mean Corpuscular Hemoglobin 30.9 PG (26-34); Monocytes Absolute Auto 500 /uL (0-900); Monocytes Percent Auto 8.4 % (3-14); Neutrophils Absolute Auto 3500 /uL (1500-7000); Neutrophils Percent Auto 60.4 % (50-75); Platelet Count 289 X10^3/uL (150-400); Red Blood Cell Count 4.62 X10^6/uL (4.0-5.2); Red Cell Distribution Width 13.8 % (11.6-14.8); White Blood Cell Count 5.7 X10^3/uL (4.5-11.0)
[2018-09-18 09:09] LABS: Alanine Aminotransferase 29 IU/L (9-52); Albumin 4.4 g/dL (3.5-5.0); Albumin Globulin Ratio 1.4 (1.0-2.8); Alkaline Phosphatase 68 U/L (38-126); Aspartate Aminotransferase 37 IU/L (14-36); BUN Creatinine Ratio 24.3 (6-22); Bilirubin Total 0.7 mg/dL (0.2-1.3); Blood Urea Nitrogen 17 mg/dL (7-17); Calcium 9.3 mg/dL (8.4-10.2); Carbon Dioxide 33 mmol/L (22-32); Chloride 101 mmol/L (98-107); Estimated Glomerular Filt Rate > 60.0 mL/min (>60); Globulin 3.1 g/dL (1.7-4.1); Glucose 142 mg/dL (80-110); HEMOLYSIS < 15 (0-50); Sodium 141 mmol/L (137-145); Total Protein 7.5 g/dL (6.3-8.2)
[2018-09-18 09:15] LABS: B Type Natriuretic Peptide 371 (<100)
== END ==
PROVIDERS: PCP Family Medicine; Visit Provider Family Medicine
DX: I08.1 Rheumatic disorders of both mitral and tricuspid valves (principal); I11.0 Hypertensive heart disease with heart failure; I50.9 Heart failure, unspecified; I48.91 Unspecified atrial fibrillation
CPT/HCPCS: 36415; 80053; 83880; 85025; 93306

== ENCOUNTER → 2018-11-16 11:31 | Outpatient (CLI) | payer OTHER, MEDICAID, SELFPAY ==
[2018-11-16 12:01] LABS: Add Manual Diff / Slide Review NO; Basophils Absolute Auto 0 /uL (0-100); Basophils Percent Auto 0.4 % (0-2); Eosinophils Absolute Auto 200 /uL (0-450); Eosinophils Percent Auto 3.4 % (2-4); Hemoglobin 13.9 g/dL (12.0-16.0); Lymphocytes Absolute Auto 1400 /uL (1100-4500); Lymphocytes Percent Auto 23.3 % (25-40); Mean Corpuscular HGB Conc 33.9 % (30-36); Mean Corpuscular Hemoglobin 30.3 PG (26-34); Mean Corpuscular Volume 89.2 fL (80-100); Monocytes Absolute Auto 600 /uL (0-900); Monocytes Percent Auto 9.2 % (3-14); Neutrophils Absolute Auto 3800 /uL (1500-7000); Neutrophils Percent Auto 63.7 % (50-75); Platelet Count 253 X10^3/uL (150-400); Red Cell Distribution Width 13.8 % (11.6-14.8)
[2018-11-16 12:40] LABS: BUN Creatinine Ratio 31.4 (6-22); Blood Urea Nitrogen 22 mg/dL (7-17); Calcium 9.8 mg/dL (8.4-10.2); Carbon Dioxide 29 mmol/L (22-32); Chloride 100 mmol/L (98-107); Cholesterol 227 mg/dL (140-199); Estimated Glomerular Filt Rate > 60.0 mL/min (>60); Glucose 109 mg/dL (80-110); HDL Cholesterol 38 mg/dL (40-60); HEMOLYSIS < 15 (0-50); LDL Cholesterol Calculated 138 mg/dL (<100); Potassium 4.1 mmol/L (3.4-5.1); Sodium 138 mmol/L (137-145); Triglycerides 255 mg/dL (35-150)
== END ==
PROVIDERS: PCP Family Medicine; Visit Provider Internal Medicine Cardiovascular Disease
DX: I10 Essential (primary) hypertension (principal); I25.10 Atherosclerotic heart disease of native coronary artery without angina pectoris; I25.84 Coronary atherosclerosis due to calcified coronary lesion
CPT/HCPCS: 36415; 80048; 80061; 85025

== ENCOUNTER → 2019-02-25 08:13 | Outpatient (CLI) | payer OTHER, MEDICAID, SELFPAY ==
--- NOTE | 2019-02-25 | DI.ECHO.S_ITS ---
[facility]---------+ [facility] +---------+ : : [address] : : : : [phone] : : : : Phone: [phone]+ Echocardiogram Report + + :Name: MELISSA YAÑEZ Study Date: 02/25/2019 Height: 59 in : :[facility] Weight: 107 lb : : Gender: Female BSA: 1.4 m2 : :: 1935 Age: 84 yrs BP: 110/70 mmHg: :Reason For Study: Mitral Valve- Regurgitation : :Ordering Physician: Gene : :Obdulio Park Performed By: Julianne Ramirez : :Referring: Nova Elmore : + + Interpretation Summary 1) Normal left ventricular thickness, size, wall motion, and systolic function (EF 60-65%). 2) Normal right ventricular size and function. 3) The left atrium is severely dilated. 4) There is moderate to severe mitral regurgitation. Mitrl valve is mild calcific and thickened with no prolapse or flail leaflet or KIRSTEN. 5) There is moderate tricuspid regurgitation. 6) The right ventricular systolic pressure is estimated to be at least 38 mmHg based on an estimated right atrial pressure of 3 mm Hg. 7) The ascending aorta is mildly enlarged at 4.2cm. 8) Compared to the Echo done 09/18/2018, no significant change. Procedure: A two-dimensional transthoracic echocardiogram with color flow and Doppler was performed. The study quality was technically good. Comparison is made with the echocardiogram of 09-18-18. The patient was in atrial fibrillation with heart rates between 67-81 bpm during the exam. Left Ventricle: The left ventricle is normal in size, wall thickness, and systolic function without any focal wall motion abnormalities. The ejection fraction is estimated to be 60-65%. Diastolic function could not be accurately assessed due to atrial fibrillation. Right Ventricle: The right ventricle grossly appears normal in size with probable normal systolic function. Atria: The left atrium is severely dilated. Right atrial size is normal. Mitral Valve: The mitral valve leaflets appear mildly thickened, but open well. There is mild to moderate mitral annular calcification. There is moderate to severe mitral regurgitation. Aortic Valve: The aortic valve is trileaflet. The aortic valve opens well. The aortic valve is mildly calcified. There is trace aortic regurgitation. Tricuspid Valve: The tricuspid valve leaflets are thin and pliable. There is moderate tricuspid regurgitation. The right ventricular systolic pressure is estimated to be at least 38 mmHg based on an estimated right atrial pressure of 3 mm Hg. Pulmonic Valve: The pulmonic valve is not well seen, but is grossly normal. There is trace pulmonic regurgitation. Great Vessels: The aortic root is normal size. The ascending aorta is mildly enlarged. The aortic arch is normal in size. The IVC is of normal diameter and collapses greater than 50% with a sniff. This suggests a low right atrial pressure of 3 mm Hg. Pericardium/ Pleura There is no pericardial effusion. There is no pleural effusion. MMode/2D Measurements & Calculations LVIDd: 4.0 cm Ao root diam: 3.5 cm LVIDs: 2.2 cm Aortic Jxn: 2.5 cm FS: 45.7 % asc Aorta Diam: 4.2 cm EPSS: 0.44 cm Ao Arch Diam (Prox Trans): 2.5 cm IVSd: 1.1 cm LVPWd: 0.83 cm LV pinedo. diameter/BSA (cm/m^2): 2.8 LV sys. diameter/BSA (cm/m^2): 1.5 LA dimension: 4.1 cm RA long axis: 5.7 cm LA A2 area: 23.4 cm2 RA area: 17.3 cm2 LA A4 area: 25.1 cm2 RA vol: 44.8 ml LA length (vol): 5.9 cm RA : 31.7 ml/m2 LA vol: 84.5 ml IVC diam: 1.6 cm LA vol index: 59.8 ml/m2 RVDd major: 5.2 cm RVD1 (basal): 2.5 cm RVD2 (mid): 2.3 cm Doppler Measurements & Calculations Ao V2 max: 104.8 cm/sec Med Peak E' Jerod: 4.9 cm/sec Ao V2 mean: 73.4 cm/sec Lat Peak E' Jerod: 5.1 cm/sec Ao max P.4 mmHg MV P1/2t: 56.5 msec Ao mean P.5 mmHg MR ERO: 0.37 cm2 Ao V2 VTI: 22.8 cm TR max jerod: 294.8 cm/sec MV V2 mean: 55.9 cm/sec TR max P.8 mmHg MV mean P.0 mmHg PA V2 max: 68.1 cm/sec MV V2 VTI: 20.8 cm PA V2 mean: 42.5 cm/sec PA mean P.87 mmHg PA Accel Time: 0.09 sec MV P1/2t max jerod: 130.7 cm/sec MR flow rate: 208.8 cm3/sec MVA(P1/2t): 3.9 cm2 MR PISA radius: 0.92 cm Reading Physician:10:21 AM
[2019-02-25 10:02] LABS: Blood Urea Nitrogen 21 mg/dL (7-17); Carbon Dioxide 34 mmol/L (22-32); Chloride 99 mmol/L (98-107); Estimated Glomerular Filt Rate > 60.0 mL/min (>60); Glucose 92 mg/dL (80-110); HEMOLYSIS 16 (0-50); Potassium 4.4 mmol/L (3.4-5.1); Sodium 140 mmol/L (137-145)
== END ==
PROVIDERS: Family Provider Family Medicine; PCP Family Medicine; Visit Provider Internal Medicine Cardiovascular Disease
DX: I08.1 Rheumatic disorders of both mitral and tricuspid valves (principal); I10 Essential (primary) hypertension; I77.89 Other specified disorders of arteries and arterioles
CPT/HCPCS: 36415; 80048; 93306

== ENCOUNTER → 2019-06-21 09:12 | Outpatient (CLI) | payer OTHER, MEDICAID, SELFPAY ==
[2019-06-21 10:16] LABS: Add Manual Diff / Slide Review NO; Basophils Absolute Auto 0 /uL (0-100); Basophils Percent Auto 0.4 % (0-2); Eosinophils Absolute Auto 100 /uL (0-450); Hematocrit 45.7 % (36-46); Hemoglobin 15.5 g/dL (12.0-16.0); Lymphocytes Absolute Auto 1600 /uL (1100-4500); Lymphocytes Percent Auto 24.3 % (25-40); Mean Corpuscular Hemoglobin 30.5 PG (26-34); Mean Corpuscular Volume 89.7 fL (80-100); Monocytes Absolute Auto 700 /uL (0-900); Monocytes Percent Auto 10.1 % (3-14); Neutrophils Absolute Auto 4200 /uL (1500-7000); Neutrophils Percent Auto 63.2 % (50-75); Platelet Count 240 X10^3/uL (150-400); Red Cell Distribution Width 14.8 % (11.6-14.8); White Blood Cell Count 6.6 X10^3/uL (4.5-11.0)
[2019-06-21 10:56] LABS: Alanine Aminotransferase 25 IU/L (<35); Albumin 4.9 g/dL (3.5-5.0); Albumin Globulin Ratio 1.5 (1.0-2.8); Alkaline Phosphatase 101 U/L (38-126); Aspartate Aminotransferase 42 IU/L (14-36); Bilirubin Total 0.7 mg/dL (0.2-1.3); Blood Urea Nitrogen 21 mg/dL (7-17); Calcium 10.3 mg/dL (8.4-10.2); Carbon Dioxide 30 mmol/L (22-32); Chloride 99 mmol/L (98-107); Cholesterol 191 mg/dL (140-199); Estimated Glomerular Filt Rate > 60.0 mL/min (>60); Globulin 3.3 g/dL (1.7-4.1); Glucose 87 mg/dL (80-110); HDL Cholesterol 52 mg/dL (40-60); HEMOLYSIS < 15 (0-50); LDL Cholesterol Calculated 101 mg/dL (<100); Potassium 4.5 mmol/L (3.4-5.1); Sodium 141 mmol/L (137-145); Total Protein 8.2 g/dL (6.3-8.2); Triglycerides 188 mg/dL (35-150)
[2019-06-21 11:25] LABS: TSH w/ Reflex to FT4 2.14 uIU/mL (0.47-4.68)
== END ==
PROVIDERS: Family Provider Family Medicine; PCP Family Medicine; Referring Provider Family Medicine; Visit Provider Family Medicine
DX: I12.0 Hypertensive chronic kidney disease with stage 5 chronic kidney disease or end stage renal disease (principal); I48.0 Paroxysmal atrial fibrillation
CPT/HCPCS: 36415; 80053; 80061; 84443; 85025

== ENCOUNTER → 2020-08-07 07:46 | Outpatient (CLI) | payer OTHER, MEDICAID, SELFPAY ==
[2020-08-07 08:12] LABS: Add Manual Diff / Slide Review NO; Basophils Absolute Auto 0 /uL (0-100); Basophils Percent Auto 0.3 % (0-2); Eosinophils Absolute Auto 200 /uL (0-450); Eosinophils Percent Auto 2.8 % (2-4); Hematocrit 42.1 % (36-46); Lymphocytes Absolute Auto 1700 /uL (1100-4500); Lymphocytes Percent Auto 24.5 % (25-40); Mean Corpuscular HGB Conc 33.3 % (30-36); Mean Corpuscular Hemoglobin 30.5 PG (26-34); Mean Corpuscular Volume 91.6 fL (80-100); Monocytes Absolute Auto 800 /uL (0-900); Monocytes Percent Auto 11.1 % (3-14); Neutrophils Absolute Auto 4300 /uL (1500-7000); Neutrophils Percent Auto 61.3 % (50-75); Platelet Count 231 X10^3/uL (150-400); Red Cell Distribution Width 14.7 % (11.6-14.8)
[2020-08-07 08:15] LABS: Alanine Aminotransferase 28 IU/L (<35); Albumin 4.6 g/dL (3.5-5.0); Albumin Globulin Ratio 1.4 (1.0-2.8); Alkaline Phosphatase 98 U/L (38-126); Aspartate Aminotransferase 48 IU/L (14-36); Bilirubin Total 1.1 mg/dL (0.2-1.3); Blood Urea Nitrogen 17 mg/dL (7-17); Calcium 9.8 mg/dL (8.4-10.2); Carbon Dioxide 34 mmol/L (22-32); Chloride 101 mmol/L (98-107); Cholesterol 167 mg/dL (140-199); Estimated Glomerular Filt Rate > 60.0 mL/min (>60); Globulin 3.4 g/dL (1.7-4.1); Glucose 104 mg/dL (80-110); HDL Cholesterol 55 mg/dL (40-60); HEMOLYSIS < 15 (0-50); LDL Cholesterol Calculated 82 mg/dL (<100); Potassium 4.5 mmol/L (3.4-5.1); Sodium 140 mmol/L (137-145); Triglycerides 152 mg/dL (35-150)
== END ==
PROVIDERS: Family Provider Family Medicine; PCP Family Medicine; Referring Provider Family Medicine; Visit Provider Family Medicine
DX: E78.5 Hyperlipidemia, unspecified (principal); I10 Essential (primary) hypertension; I48.91 Unspecified atrial fibrillation; Z76.89 Persons encountering health services in other specified circumstances
CPT/HCPCS: 36415; 80053; 80061; 85025